=== PATIENT | female | born 1950 | race Caucasian/White ===

== ENCOUNTER → 2018-07-09 | Outpatient (CLI) | payer OTHER ==
[~2018-07-09] MED LIST: MONT4TAB PO; PNEU0.5D3 IM; TRIA15OI20 TP
[2018-07-09 07:58] LABS: PLATELET COUNT, AUTOMATED 214 K/uL (150-450)
[2018-07-09 09:40] LABS: LDL CHOLESTEROL 114 mg/dl
== END ==
LOC: LAB 07-08 14:29
PROVIDERS: ATTEND Emergency Medicine
DX: Z00.00 Encounter for general adult medical examination without abnormal findings (principal); R20.8 Other disturbances of skin sensation
CPT/HCPCS: 36415; 82040; 82247; 82310; 82374; 82435; 82465; 82565; 82607; 82947; 83718; 84075; 84132; 84155; 84295; 84443; 84450; 84460; 84478; 84520; 85025

== ENCOUNTER → 2018-08-09 | Outpatient (CLI) | payer OTHER ==
[~2018-08-09] MED LIST changes: +ATOV1TAB17 PO; +[UNRECOGNIZED DRUG - CODE] IM
--- NOTE | 2018-08-09 11:27 | RADIOLOGY IMAGING REPORT ---
FACILITY: [facility] PATIENT NAME: CALVIN MUÑOZ : [id number] MR: [id number] V: [id number] EXAM DATE: [id number] ORDERING PHYSICIAN: CRISTEL GEORGES TECHNOLOGIST: Marcia Jenkins PROCEDURE:BILATERAL DIGITAL SCREENING MAMMOGRAM WITH CAD ASSISTED INTERPRETATION & 3D TOMOSYNTHESIS COMPARISON:Prior mammograms dated 01/13/16, 03/27/14, 02/06/13, 11/16/11 INDICATIONS:screening FINDINGS: The breasts are heterogeneously dense which can obscure small masses. The parenchymal pattern has remained stable when allowing for differences in mammographic technique & patient positioning. DIAGNOSTIC CATEGORY 1--NEGATIVE. RECOMMENDATIONS: ROUTINE MAMMOGRAM AND CLINICAL EVALUATION. IMPRESSION: BIRADS 1: Negative. No significant abnormality is seen. Dictated by: Amalia Alberts M.D. on 08/09/2018 at 11:02 Transcribed by: JIGNESH on 08/09/2018 at 11:08 Approved by: Amalia Alberts M.D. on 08/09/2018 at 11:26 [facility]
--- NOTE | 2018-08-09 12:25 | RADIOLOGY IMAGING REPORT ---
FACILITY: [facility] PATIENT NAME: Antonia Gibson : 1950 MR: [id number] V: [id number] EXAM DATE: [id number] ORDERING PHYSICIAN: CRISTEL GEORGES TECHNOLOGIST: [place] [facility] [place] : 1950 Visit/Account:[id number] Date of Sevice: 08/09/2018 DEXA Scan Clinical history: Screening. Comparison: DEXA scan from 02/06/2013. LUMBAR SPINE: The bone mineral density (BMD) measured from L1-L4 correlates with a Z-score of -0.1 and a T-score of -1.9 which is osteopenia as defined by the World Health Organization. The corresponding risk of fra cture in the lumbar spine is 3-4 times increased compared with a young adult reference population. T his value has decrease by -6.9 % since the prior study. More than 5% change is considered significan t. HIP: Bone mineral density (BMD) measured in the LEFT total hip region correlates with a Z-score -0.5 and a T-score of -1.9 which is osteopenia as defined by the World Health Organization. The corresponding risk of fracture in the hip is 3-4 times increased compared to a young adult reference population. Th is value has decrease by 7.2 % since the prior study. More than 5% change is considered significant. T score left femoral neck -2 Bone mineral density (BMD) measured in the Femoral Neck region measures 0.756 g/cm?. IMPRESSION: 1. Lumbar spine: Osteopenia. There has been 6.9% decrease in the bone mineral density since the pre vious exam. 2. Left Total Hip: Osteopenia. There has been 7.2% decrease in the bone mineral density since the p revious exam. 3. Femoral Neck: Bone Mineral Density is 0.756 g/cm? The next DEXA scan of this patient should include the following sites: L1-L4 and the left hip. FRAX? WHO Fracture Risk Assessment Tool link: <http://www.shef.ac.uk/FRAX/tool.jsp?[email or web address]> PLEASE NOTE: 1) The World Health Organization defines low BMD as follows: T-score Normal > -1 Osteopenia < -1 and > -2.5 Osteoporosis < -2.5 without fractures Established osteoporosis < -2.5 with fractures 2) In general, you may wish to consider: Diagnosis Treatment Follow-up DEXA Normal BMD Prevention 2-3 years Osteopenia Prevention/therapy 1-2 years Osteoporosis Therapy Yearly 3) Fracture risk estimated from the T-score is more accurate for vertebral fractures (often spontane ous) than for hip fractures. Report Dictated By: Amalia Alberts MD at 08/09/2018 12:19 PM Report E-Signed By: Amalia Alberts MD at 08/09/2018 12:21 PM WSN:[email or web address]
== END ==
LOC: MAMO 01:19
PROVIDERS: ATTEND Family Medicine
DX: Z12.31 Encounter for screening mammogram for malignant neoplasm of breast (principal); M85.89 Other specified disorders of bone density and structure, multiple sites
CPT/HCPCS: 77063; 77067; 77080

== ENCOUNTER 2018-10-04 08:46 | Emergency (ER) | payer OTHER ==
[2018-10-04] MEDS ORDERED: NS(*) 0.9% 1000 ML BAG 1,000 ML IV ONE ×2 (09:08→09:29)
[2018-10-04] MEDS ORDERED: ONDANSETRON 4 MG/2 ML VIAL IVP ONE (09:10)
--- NOTE | 2018-10-04 09:18 | ER Report ---
History and Physical Time Seen By MD: 09:16 Hx. of Stated Complaint: PATIENT REPORTS NAUSEA AND VOMITTING SINCE YESTERDAY. ALSO REPORTS DIZZINESS THAT GETS WORSE WHEN STANDING UP HPI/ROS CHIEF COMPLAINT: Nausea, vomiting, chills HISTORY OF PRESENT ILLNESS: Patient is a 68-year-old female here with complaints of nausea, vomiting, dizziness, chills starting yesterday morning. Patient reportedly developed these symptoms and has been unable to keep down food or fluids. Patient reports intermittent fevers, chills. [place] the [place] and had taken Malarone for prophylaxis. Patient has been well up until yesterday morning. Patient also has horizontal nystagmus on examination. REVIEW OF SYSTEMS: Constitutional: + fever, + chills, gen weakness Eyes: No discharge. ENT: No sore throat. Cardiovascular: No chest pain, no palpitations. Respiratory: No cough, no shortness of breath. Gastrointestinal: No abdominal pain, + nausea and vomiting. Genitourinary: No hematuria. Musculoskeletal: No back pain. Skin: No rashes. Neurological: No headache, + dizziness Allergies: Coded Allergies: Sulfa (Sulfonamide Antibiotics) (Unverified Allergy, Unknown, HIVES, ) Home Meds Discontinued Scripts Atovaquone/Proguanil Hcl (MALARONE 250-100 MG TABLET) 1 Each Tablet, 1 EACH PO DAILY, #24 TAB 0 Refills Prov:CRISTEL GEORGES MD 07/22/18 Typhoid Vacc Vi Capsu Polysacc (TYPHIM ) 25 Mcg/0.5 Ml Disp.syrin, 25 MCG IM ONCE, #1 SYR 0 Refills Prov:CRISTEL GEORGES MD 07/22/18 Triamcinolone Acetonide 0.1% Oint 15 Gm Tube (TRIAMCINOLONE ACETONIDE 0.1% 15 GM TUBE) 15 Gm Oint...g., 1 MABLE TP BID, #1 TUBE 3 Refills Prov:CRISTEL GEORGES MD 07/09/18 Hx Smoking: No Smoking Status: Never Smoker Exposure to Second Hand Smoke?: Yes (both parents smoked) Hx Substance Use Disorder: No Hx Alcohol Use: No Constitutional Vital Sign - Last 24 Hours 10/04/18 10/04/18 10/04/18 10/04/18 08:46 08:51 08:53 09:00 Temp 97.9 Pulse 82 84 Resp 16 B/P (MAP) 146/89 (108) 146/89 140/91 (107) Pulse Ox 91 O2 Delivery Room Air 10/04/18 10/04/18 10/04/18 10/04/18 09:06 09:26 09:30 09:46 Pulse 84 88 85 B/P (MAP) 138/95 (109) Pulse Ox 95 94 94 10/04/18 10/04/18 10/04/18 10/04/18 10:00 10:06 10:11 10:30 Pulse 86 86 B/P (MAP) 149/124 (132) 130/85 (100) Pulse Ox 92 94 10/04/18 10/04/18 10/04/18 10/04/18 10:31 10:31 10:51 11:00 Pulse 83 79 B/P (MAP) 140/86 (104) Pulse Ox 100 100 O2 Flow Rate 2.0 10/04/18 10/04/18 10/04/18 11:11 11:30 11:31 Pulse 85 84 B/P (MAP) 138/87 (104) Pulse Ox 98 Physical Exam General Appearance: The patient is alert, has no immediate need for airway protection and no signs of toxicity. Generalized weakness, uncomfortable appearing Eyes: Pupils equal and round no pallor or injection. + Horizontal fatigable nystagmus ENT, Mouth: Mucous membranes are moist. Respiratory: There are no retractions, lungs are clear to auscultation. Cardiovascular: Regular rate and rhythm. Gastrointestinal: Abdomen is soft and non tender, no masses, bowel sounds normal. Neurological: Generalized weakness, dizziness, Skin: Warm and dry, no rashes. Musculoskeletal: Neck is supple non tender. Extremities are nontender, nonswollen and have full range of motion. DIFFERENTIAL DIAGNOSIS: After history and physical exam differential diagnosis was considered for viral syndrome, bacterial infection, malaria, electrolyte abnormality, dehydration Medical Decision Making Data Points Result Diagram: 10/04/1892110/04/18921 Laboratory Hematology Test 10/04/18 09:22 10/04/18 11:25 Red Blood Count 5.00 M/uL (4.17-5.56) Mean Corpuscular Volume 89.7 fL (80.0-96.0) Mean Corpuscular Hemoglobin 30.2 pg (26.0-33.0) Mean Corpuscular Hemoglobin Concent 33.7 g/dL (32.0-36.0) Red Cell Distribution Width 12.9 % (11.5-14.5) Mean Platelet Volume 7.9 fL (7.2-11.1) Neutrophils (%) (Auto) 82.0 % (39.4-72.5) Lymphocytes (%) (Auto) 11.8 % (17.6-49.6) Monocytes (%) (Auto) 5.7 % (4.1-12.4) Eosinophils (%) (Auto) 0.2 % (0.4-6.7) Basophils (%) (Auto) 0.3 % (0.3-1.4) Nucleated RBC Relative Count (auto) 0.1 /100WBC Neutrophils # (Auto) 5.4 K/uL (2.0-7.4) Lymphocytes # (Auto) 0.8 K/uL (1.3-3.6) Monocytes # (Auto) 0.4 K/uL (0.3-1.0) Eosinophils # (Auto) 0.0 K/uL (0.0-0.5) Basophils # (Auto) 0.0 K/uL (0.0-0.1) Nucleated RBC Absolute Count (auto) 0.01 K/uL Prothrombin Time 12.7 seconds (12.0-14.4) Prothromb Time International Ratio 0.95 Activated Partial Thromboplast Time 25 seconds (23-35) Sodium Level 139 mmol/L (137-145) Potassium Level 3.8 mmol/L (3.5-5.0) Chloride Level 104 mmol/L (98-107) Carbon Dioxide Level 24 mmol/L (22-31) Blood Urea Nitrogen 16 mg/dl (7-18) Creatinine 0.60 mg/dl (0.52-1.04) Glomerular Filtration Rate Calc > 60.0 Random Glucose 106 mg/dl (75-110) Lactate 1.3 mmol/L (0.7-2.1) Calcium Level 9.3 mg/dl (8.4-10.2) Total Bilirubin 0.7 mg/dl (0.2-1.3) Aspartate Amino Transf (AST/SGOT) 33 U/L (0-35) Alanine Aminotransferase (ALT/SGPT) 30 U/L (0-56) Alkaline Phosphatase 88 U/L (0-126) Total Protein 7.1 g/dl (6.3-8.2) Albumin 4.3 g/dl (3.5-5.0) Lipase 101 U/L (23-300) Urine Color Yellow Urine Clarity Clear Urine pH 6.0 pH (4.8-9.5) Urine Specific [employer] 1.023 Urine Protein Negative mg/dL (NEGATIVE) Urine Glucose (UA) Negative mg/dL (NEGATIVE) Urine Ketones 80 mg/dL (NEGATIVE) Urine Blood Negative (NEGATIVE) Urine Nitrite Negative (NEGATIVE) Urine Bilirubin Negative (NEGATIVE) Urine Urobilinogen Negative mg/dL (0.2-1.9) Urine Leukocyte Esterase Trace (NEGATIVE) Urine RBC 1 /HPF (0-2/HPF) Urine WBC 6 /HPF (0-5/HPF) Urine Squamous Epithelial Cells None /LPF (</=FEW) Urine Bacteria Negative /HPF (NONE-FEW) Urine Mucus Few /HPF (NONE-FEW) Chemistry Test 10/04/18 09:22 10/04/18 11:25 White Blood Count 6.6 k/uL (4.5-11.0) Red Blood Count 5.00 M/uL (4.17-5.56) Hemoglobin 15.1 g/dL (12.0-16.0) Hematocrit 44.9 % (34.0-47.0) Mean Corpuscular Volume 89.7 fL (80.0-96.0) Mean Corpuscular Hemoglobin 30.2 pg (26.0-33.0) Mean Corpuscular Hemoglobin Concent 33.7 g/dL (32.0-36.0) Red Cell Distribution Width 12.9 % (11.5-14.5) Platelet Count 215 K/uL (150-450) Mean Platelet Volume 7.9 fL (7.2-11.1) Neutrophils (%) (Auto) 82.0 % (39.4-72.5) Lymphocytes (%) (Auto) 11.8 % (17.6-49.6) Monocytes (%) (Auto) 5.7 % (4.1-12.4) Eosinophils (%) (Auto) 0.2 % (0.4-6.7) Basophils (%) (Auto) 0.3 % (0.3-1.4) Nucleated RBC Relative Count (auto) 0.1 /100WBC Neutrophils # (Auto) 5.4 K/uL (2.0-7.4) Lymphocytes # (Auto) 0.8 K/uL (1.3-3.6) Monocytes # (Auto) 0.4 K/uL (0.3-1.0) Eosinophils # (Auto) 0.0 K/uL (0.0-0.5) Basophils # (Auto) 0.0 K/uL (0.0-0.1) Nucleated RBC Absolute Count (auto) 0.01 K/uL Prothrombin Time 12.7 seconds (12.0-14.4) Prothromb Time International Ratio 0.95 Activated Partial Thromboplast Time 25 seconds (23-35) Glomerular Filtration Rate Calc > 60.0 Lactate 1.3 mmol/L (0.7-2.1) Calcium Level 9.3 mg/dl (8.4-10.2) Total Bilirubin 0.7 mg/dl (0.2-1.3) Aspartate Amino Transf (AST/SGOT) 33 U/L (0-35) Alanine Aminotransferase (ALT/SGPT) 30 U/L (0-56) Alkaline Phosphatase 88 U/L (0-126) Total Protein 7.1 g/dl (6.3-8.2) Albumin 4.3 g/dl (3.5-5.0) Lipase 101 U/L (23-300) Urine Color Yellow Urine Clarity Clear Urine pH 6.0 pH (4.8-9.5) Urine Specific [employer] 1.023 Urine Protein Negative mg/dL (NEGATIVE) Urine Glucose (UA) Negative mg/dL (NEGATIVE) Urine Ketones 80 mg/dL (NEGATIVE) Urine Blood Negative (NEGATIVE) Urine Nitrite Negative (NEGATIVE) Urine Bilirubin Negative (NEGATIVE) Urine Urobilinogen Negative mg/dL (0.2-1.9) Urine Leukocyte Esterase Trace (NEGATIVE) Urine RBC 1 /HPF (0-2/HPF) Urine WBC 6 /HPF (0-5/HPF) Urine Squamous Epithelial Cells None /LPF (</=FEW) Urine Bacteria Negative /HPF (NONE-FEW) Urine Mucus Few /HPF (NONE-FEW) Coagulation Test 10/04/18 09:22 Prothrombin Time 12.7 seconds Prothromb Time International Ratio 0.95 Activated Partial Thromboplast Time 25 seconds Urinalysis Test 10/04/18 11:25 Urine Color Yellow Urine Clarity Clear Urine pH 6.0 pH (4.8-9.5) Urine Specific [employer] 1.023 Urine Protein Negative mg/dL (NEGATIVE) Urine Glucose (UA) Negative mg/dL (NEGATIVE) Urine Ketones 80 mg/dL (NEGATIVE) Urine Blood Negative (NEGATIVE) Urine Nitrite Negative (NEGATIVE) Urine Bilirubin Negative (NEGATIVE) Urine Urobilinogen Negative mg/dL (0.2-1.9) Urine Leukocyte Esterase Trace (NEGATIVE) Urine RBC 1 /HPF (0-2/HPF) Urine WBC 6 /HPF (0-5/HPF) Urine Squamous Epithelial Cells None /LPF (</=FEW) Urine Bacteria Negative /HPF (NONE-FEW) Urine Mucus Few /HPF (NONE-FEW) Microbiology Microbiology Date/Time Source Procedure Growth Status 10/04/18 09:33 Blood Peripheral Draw Blood Culture - Preliminary NO GROWTH SO FAR, SET LATE. REINCUBATED Resulted EKG/Imaging Imaging PATIENT NAME: Antonia Gibson : 1950 MR: [id number] V: [id number] EXAM DATE: ORDERING PHYSICIAN: MARY ALICE BOOTH TECHNOLOGIST: [place] [facility] [place] Patient: Antonia Gibson : 1950 Visit/Account:[id number] Date of Sevice: 10/04/2018 EXAMINATION: CT Head without intravenous contrast HISTORY: Dizziness. TECHNIQUE: Axial images were obtained from the skull base to the vertex without intravenous contrast. Sagittal and coronal reformatted images are also submitted. One of the following dose optimization techniques was utilized in the performance of this exam: Automated exposure control; adjustment of the mA and/or kV according to the patient's size; or use of an iterative reconstruction technique. Specific details can be referenced in the facility's radiology CT exam operational policy. COMPARISON: None available. FINDINGS: Brain volume: Normal. Ventricles: Negative. Acute ischemic changes: None. Hemorrhage: None. Masses / edema: None. Fairchild-white: Negative. White matter: Negative. Vessels: Negative. Extra-axial: Negative. Calvarium / skull base: Negative. Visualized sinuses / orbits: Negative. IMPRESSION: Normal noncontrast head CT. ED Course/Re-evaluation ED Course Patient is a 68-year-old female here with complaints of chills, weakness, nausea, decreased appetite, dizziness. Labs including electrolytes and fluid status were found be unremarkable. Patient was given 2 L normal saline bolus, meclizine, Zofran with significant relief of symptoms. CT scan of the head was completed due to patient's history and current complaints and was negative for intracranial findings. Close PCP or follow-up recommended. Return precautions provided. Decision to Disposition Date: Oct 04, 2018 Decision to Disposition Time: 12:03 Depart Departure Latest Vital Signs Vital Signs Date Time Temp Pulse Resp B/P (MAP) Pulse Ox O2 Delivery O2 Flow Rate FiO2 10/04/18 11:31 84 98 10/04/18 11:30 138/87 (104) 10/04/18 10:31 2.0 10/04/18 08:53 97.9 16 Room Air Impression: Primary Impression: Dizziness Additional Impression: Nausea & vomiting Condition: Improved Disposition: HOME OR SELF-CARE Referrals: CRISTEL GEORGES MD (PCP) Patient Instructions: Acute Nausea and Vomiting (ED) Additional Instructions: Please drink plenty of water. You may take Zofran 1 tablet every 4-6 hours as needed for nausea and vomiting. Please return promptly if you develop inability to keep down food or fluids, persistent vomiting, fevers. Please follow-up with your family doctor next 24-48 hours. Problem Qualifiers MARY ALICE BOOTH DO Oct 04, 2018 09:18
[2018-10-04] MEDS ORDERED: KETOROLAC 30 MG/ML VIAL IVP ONE (09:30)
[2018-10-04 09:34] LABS: PLATELET COUNT, AUTOMATED 215 K/uL (150-450)
[2018-10-04 09:42] LABS: INR 0.95
--- NOTE | 2018-10-04 10:22 | RADIOLOGY IMAGING REPORT ---
FACILITY: [facility] - [place] PATIENT NAME: Antonia Gibson : 1950 MR: [id number] V: [id number] EXAM DATE: ORDERING PHYSICIAN: MARY ALICE BOOTH TECHNOLOGIST: Location: [facility] Patient: Antonia Gibson : 1950 Visit/Account:[id number] Date of Sevice: 10/04/2018 EXAMINATION: CT Head without intravenous contrast HISTORY: Dizziness. TECHNIQUE: Axial images were obtained from the skull base to the vertex without intravenous contrast . Sagittal and coronal reformatted images are also submitted. One of the following dose optimization techniques was utilized in the performance of this exam: Autom ated exposure control; adjustment of the mA and/or kV according to the patient's size; or use of an i terative reconstruction technique. Specific details can be referenced in the facility's radiology C T exam operational policy. COMPARISON: None available. FINDINGS: Brain volume: Normal. Ventricles: Negative. Acute ischemic changes: None. Hemorrhage: None. Masses / edema: None. Fairchild-white: Negative. White matter: Negative. Vessels: Negative. Extra-axial: Negative. Calvarium / skull base: Negative. Visualized sinuses / orbits: Negative. IMPRESSION: Normal noncontrast head CT. Report Dictated By: Tigre Gilmore MD at 10/04/2018 10:12 AM Report E-Signed By: Tigre Gilmore MD at 10/04/2018 10:17 AM WSN:[email or web address]
[2018-10-04] MEDS ORDERED: MECLIZINE HCL 25 MG TAB PO ONE (11:45)
[2018-10-04 12:30] VITALS: BP 135/81
== END 2018-10-04 12:50 | disposition home or self-care (01) ==
LOC: ER 09:22
DX: R11.2 Nausea with vomiting, unspecified (principal); R42 Dizziness and giddiness; H55.00 Unspecified nystagmus
CPT/HCPCS: 70450; 81001; 83605; 83690; 85025; 85610; 85730; 87040; 96361; 96374; 96375; 99284; J1885; J2405; J7030; J8597; 82040; 82247; 82310; 82374; 82435; 82565; 82947; 84075; 84132; 84155; 84295; 84450; 84460; 84520